=== PATIENT | male | born 1990 | race Caucasian/White ===

== ENCOUNTER 2019-12-14 21:50 | Emergency (ER) | payer OTHER ==
[~2019-12-14] VITALS: Ht 182.9 cm; Wt 108.0 kg
[2019-12-14] MEDS ORDERED: DEPAKOTE250 MG PO (21:55)
[2019-12-14] MEDS ORDERED: SEROQUEL200 MG PO (21:55)
[2019-12-14 22:46] LABS: ABSOLUTE NEUTROPHILS 8.9 thou/uL (1.4-8.2); BASOPHILS 0.8 % (0.0-2.0); EOSINOPHILS 1.9 % (0.0-3.0); HEMATOCRIT 44.8 % (42.0-52.0); HEMOGLOBIN 15.4 gm/dL (14.0-18.0); LYMPHOCYTES 26.4 % (24.0-44.0); MCH 32.4 pg (26.0-34.0); MCHC 34.4 g/dL (28.0-37.0); MCV 94.4 fL (80.0-100.0); MONOCYTES 7.3 % (1.0-8.0); PLATELET COUNT 258 thou/uL (150-400); POLYS 63.6 % (36.0-66.0); RBC 4.75 mil/uL (4.50-6.00); RDW 12.3 % (10.5-14.5); WBC 14.1 thou/uL (4.0-11.0)
[2019-12-14 22:48] LABS: ANION GAP 12 mmol/L (7-16); BUN 12 mg/dL (7-18); CHLORIDE 100 mmol/L (98-107); CO2 26 mmol/L (21-32); CREATININE 1.2 mg/dL (0.7-1.3); GLUCOSE 119 mg/dL (74-106); POTASSIUM 3.5 mmol/L (3.5-5.1); SODIUM 138 mmol/L (136-145)
[2019-12-14 22:58] LABS: ALBUMIN 4.5 g/dL (3.4-5.0); SGOT 25 U/L (15-37); SGPT 57 U/L (30-65); TOTAL BILIRUBIN 0.5 mg/dL (0.2-1.0); TOTAL PROTEIN 7.9 g/dL (6.4-8.2); TROPONIN-I <0.06 ng/mL (<0.06)
[2019-12-15] MEDS ORDERED: MECLIZINE HCL25 M1 PO (00:01)
[2019-12-15 00:09] VITALS: BP 131/63
--- NOTE | 2019-12-15 13:54 | EKG ---
[facility] [place] [address] ELECTROCARDIOGRAM REPORT Name: VENICE MICHAELS Room #: DEP [facility]#: [id number] Admission: 12/14/19 Attend Phys: Discharge: 12/15/19 Date of : 89 Report #: [id number] THIS REPORT FOR: cc: RAZIA Hickman family physician/PCP RAZIA Hikcman family physician/PCP Tk Cho MD [facility] ~ THIS REPORT FOR: //name// [facility] ED Test Date: 2019-12-14 Test Time: 21:54:07 Pat Name: VENICE MICHAELS Department: Room: Gender: Dental [employer] Helper: [place] [id number] : 1990 Requested By: [place]let D[place] Order Number: [id number] MD: Tk Cho Measurements Intervals [place] Rate: 73 P: 8 IA: 135 QRS: 36 QRSD: 106 T: 23 QT: 408 QTc: 450 Interpretive Statements Sinus rhythm Baseline wander in lead(s) V1 No previous ECG available for comparison Electronically Signed On 12-15-2019 13:53:46 CDT by Tk Cho [email or web address] <ELECTRONICALLY SIGNED> By: Tk Cho MD, FACC 12/15/19 1353 [id number] Tk Cho MD, [facility] /EPI
== END 2019-12-15 00:15 | disposition home or self-care (01) ==
LOC: ER 21:50
PROVIDERS: Emergency Medicine
DX: S01.111A Laceration without foreign body of right eyelid and periocular area, initial encounter (principal); F32.9 Major depressive disorder, single episode, unspecified; Z79.899 Other long term (current) drug therapy; W19.XXXA Unspecified fall, initial encounter; Y93.89 Activity, other specified; Y92.89 Other specified places as the place of occurrence of the external cause; Y99.8 Other external cause status